=== PATIENT | male | born 1950 | race Caucasian/White ===

== ENCOUNTER → 2016-10-22 | Outpatient (CLI) | payer OTHER ==
[~2016-10-22] MED LIST: LEVE500T13 PO; LISI-791 PO
--- NOTE | 2016-10-22 10:11 | DIAGNOSTIC IMAGING REPORT ---
KUB CLINICAL HISTORY: N20.0 [id number] COMPARISON STUDY: 10/16/2015 FINDINGS: The renal shadows are partially obscured by overlying bowel gas and fecal material. There is no pathologic bowel dilatation. 2 mm opacities projected over the right renal shadow represent either calculi or overlying enteric contents. There are multiple pelvic basin calcifications, similar in orientation the prior study and likely representing phleboliths. IMPRESSION: 1. Tiny right renal calculi versus overlying enteric contents. 2. No evidence of pathologic bowel dilatation Electronically signed by: Eleazar Doherty M.D. 10/22/2016 10:10 AM Dictated Date/Time: 10/22/2016 10:08 AM
[2016-10-22 11:11] LABS: BASO % 0.5 %; BASO ABS # 0.03 K/uL (0-0.2); COMPLETE YES; EOS % 2.2 %; HEMATOCRIT 46.5 % (42-52); IG% 0.3 %; LYMPH % 27.1 %; LYMPH ABS # 1.76 K/uL (1.2-3.4); MEAN CELL VOLUME 89.1 fL (80-100); MEAN CORPUSCULAR HEMOGLOBIN 30.1 pg (25-34); MEAN CORPUSCULAR HGB CONC 33.8 g/dl (32-36); MONO % 11.4 %; NEUT % 58.5 %; PLATELET COUNT 286 K/uL (130-400); RED BLOOD COUNT 5.22 M/uL (4.7-6.1)
[2016-10-22 11:37] LABS: BLOOD UREA NITROGEN 23 mg/dl (7-18); BUN/CREATININE RATIO 20.5 (10-20); CALCIUM 8.7 mg/dl (8.5-10.1); CARBON DIOXIDE 26 mmol/L (21-32); CHLORIDE 111 mmol/L (98-107); CHOLESTEROL 173 mg/dl (0-200); GLUCOSE 89 mg/dl (70-99); POTASSIUM 4.6 mmol/L (3.5-5.1); SODIUM 145 mmol/L (136-145); TRIGLYCERIDES 66 mg/dl (0-150); VERY LOW DENSITY LIPOPROT CALC 13 mg/dl
[2016-10-22 11:49] LABS: ALB/GLOB RATIO 1.1 (0.9-2); ALKALINE PHOSPHATASE 67 U/L (45-117); ALT/SGPT 30 U/L (12-78); AST/SGOT 17 U/L (15-37); HDL CHOLESTEROL 58 mg/dl; LDL CHOLESTEROL CALCULATED 102 mg/dl; THYROID STIMULATING HORMONE 0.863 uIu/ml (0.300-4.500)
== END | disposition home or self-care (01) ==
LOC: C.RAD1850 09:33
PROVIDERS: ATTEND Urology
DX: Z00.00 Encounter for general adult medical examination without abnormal findings (principal); I10 Essential (primary) hypertension; M25.569 Pain in unspecified knee; R73.9 Hyperglycemia, unspecified; N20.0 Calculus of kidney

== ENCOUNTER → 2016-12-08 | Outpatient (CLI) | payer OTHER | END | disposition home or self-care (01) | LOC: C.LABBC 09:41 | PROVIDERS: ATTEND Internal Medicine | DX: R51 Headache (principal) ==

== ENCOUNTER → 2017-01-11 | Outpatient (CLI) | payer OTHER ==
[2017-01-11 10:14] LABS: BLOOD UREA NITROGEN 16 mg/dl (7-18); BUN/CREATININE RATIO 15.5 (10-20)
== END | disposition home or self-care (01) ==
LOC: C.LAB1850 08:39
PROVIDERS: ATTEND Internal Medicine Pulmonary Disease
DX: I10 Essential (primary) hypertension (principal); R51 Headache; R41.3 Other amnesia

== ENCOUNTER 2017-01-13 17:29 | Emergency (ER) | payer OTHER ==
[~2017-01-13] VITALS: Ht 264.2 cm; Wt 86.5 kg
[~2017-01-13 17:29] MED LIST changes: -LEVE500T13 PO
[2017-01-13 17:32] VITALS: TEMP 36.5
--- NOTE | 2017-01-13 17:46 | EMERGENCY ROOM VISIT NOTE ---
History Report prepared by Antonieta: Billy Rodriguez Under the Supervision of: Dr. Oziel Dallas D.O. First contact with patient: 17:42 Chief Complaint: NEURO SYMPTOMS Stated Complaint: NUMBNESS L ARM/HAND History of Present Illness The patient is a 66 year old male who presents to the Emergency Room with complaints of headache and numbness over the left upper extremity. The patient has been noticing symptoms for the last few weeks. He states he gets intermittent right-sided headaches which begin behind his right eye and extend to his neck. The patient was seen by his primary care physician and sent to a neurologist. He is scheduled for an MRI tomorrow. He was driving home today from [place] when he noticed left upper extremity numbness and weakness. He states that he noticed numbness going down the medial aspect of his left arm into his fourth and fifth digits. The patient denies having any headache at this time. He also denies having any numbness or weakness. The patient states he has mild neck pain but he states this is not the major issue and he denies having any traumas her injuries to his neck in the past. The patient states he has not had any lower extremity weakness. He denies having any rashes or fevers. He denies having any nausea or vomiting at this time. He's not had any recent illnesses. Source of History: patient Onset: Few Weeks Position: head, arm (left) Quality: numbness ((LUE)) Associated Symptoms: + numbness, + weakness Review of Systems See HPI for pertinent positives & negatives. A total of 10 systems reviewed and were otherwise negative. Past Medical & Surgical Medical Problems: (1) Hypertension (2) Kidney stones Surgical Problems: (1) Hx of tonsillectomy Family History No pertinent secondary to patient age. Social History Smoking Status: Never Smoker Smokeless Tobacco Use: No Alcohol Use: none Drug Use: none Occupation Status: retired Current/Historical Medications Scheduled Lisinopril (Zestril), 10 MG PO QAM Allergies Coded Allergies: No Known Allergies (Unverified , 01/13/17) Physical Exam Vital Signs Date Time Temp Pulse Resp B/P Pulse Ox O2 Delivery O2 Flow Rate FiO2 01/14/17 00:58 67 20 143/89 97 01/13/17 23:38 69 18 143/92 96 Room Air 01/13/17 21:59 60 18 156/93 95 Room Air 01/13/17 17:54 98 Room Air 01/13/17 17:32 36.5 65 18 168/102 99 Room Air Physical Exam GENERAL: Patient is awake alert in no acute distress patient is resting comfortably and showing no signs of anxiety EYES: The conjunctivae are clear. The pupils are round and reactive. EARS, NOSE, MOUTH AND THROAT: The nose is without any evidence of any deformity. Mucous membranes are moist tongue is midline NECK: The neck is nontender and supple. RESPIRATORY: Normal respiratory effort is noted there is no evidence of wheezing rhonchi or rales CARDIOVASCULAR: Regular rate and rhythm noted there no murmurs rubs or gallops normal S1 normal S2 GASTROINTESTINAL: The abdomen is soft. Bowel sounds are present in all quadrants. Abdomen is nontender MUSCULOSKELETAL/EXTREMITIES: There is no evidence of gross deformity full range of motion is noted in the hips and shoulders SKIN: There is no obvious evidence of any rash. There are no petechiae, pallor or cyanosis noted. NEUROLOGIC: Patient is awake alert and oriented x3 strength is symmetric patellar reflexes are 2+ bilaterally Medical Decision & Procedures ER Provider Diagnostic Interpretation: Radiology results as stated below per my review and radiologist interpretation: CHEST ONE VIEW PORTABLE HISTORY: Left arm numbness. Stroke COMPARISON: None. FINDINGS: The lungs are clear. Cardiac silhouette is normal in size. No pleural effusions. No pneumothorax. IMPRESSION: No acute process. Electronically signed by: Sandeep Colin M.D. 01/13/2017 6:08 PM Dictated Date/Time: 01/13/2017 6:07 PM+ CERVICAL SPINE MRI HISTORY: Left upper extremity numbness and weakness. TECHNIQUE: Multiplanar multisequence MRI of the cervical spine was performed without the use of contrast. COMPARISON STUDY: None. FINDINGS: No fracture or subluxation. There is a 1 cm hemangioma within the T2 vertebral body. Prevertebral soft tissues and the C1-C2 interval are intact. The cervical spinal cord demonstrates a normal course, caliber, and signal intensity. Mild disc space narrowing at C5-C6 and C6-C7. C2-C3: No significant central canal or neural foraminal narrowing. C3-C4: No central canal or left-sided neural foraminal narrowing. Moderate right-sided neural foraminal narrowing due to the uncovertebral and facet hypertrophy. C4-C5: No central canal narrowing. Mild bilateral neural foraminal narrowing. C5-C6: Broad-based posterior disc bulge which abuts but does not deform the anterior cord. There is moderate right and severe left neural foraminal narrowing. C6-C7: Small broad-based posterior disc bulge which abuts but does not deform the anterior cord. There is severe right neural foraminal narrowing. C7-T1: No significant central canal or neural foraminal narrowing. IMPRESSION: 1. Broad-based posterior disc bulges which abut but do not deform the anterior cord at C5-C6 and C6-C7. 2. Multilevel bilateral neural foraminal narrowing as described above. Electronically signed by: Sandeep Colin M.D. 01/13/2017 9:38 PM Dictated Date/Time: 01/13/2017 9:30 PM Brain MRI WITH AND WITHOUT CONTRAST HISTORY: Headache. Left upper extremity numbness. TECHNIQUE: Multiplanar multisequence MRI of the brain was performed both before and after the intravenous administration of contrast. COMPARISON STUDY: None. FINDINGS: No acute infarct or mass. There are retention cysts within the maxillary sinuses. The mastoid air cells are clear. The major vascular flow-voids at the skull base are maintained. There is a moderate to large right subdural hematoma demonstrating a maximal thickness of 2.2 cm. This results in 6 mm of left midline shift, mass effect along the right frontal/parietal lobes, and partial effacement of the right lateral ventricle. Right-sided dural enhancement is likely reactive. Also trace subarachnoid hemorrhage within the right frontal and parietal lobes adjacent to the subdural hematoma. IMPRESSION: A moderate to large right subdural hematoma with a maximal thickness of 2.2 cm. This results in 6 mm of left midline shift. There is also a trace amount of subarachnoid hemorrhage within the right frontal and parietal lobes adjacent to the subdural hematoma . These findings were discussed with Dr. Dallas at 10:13 PM on 01/13/2017. Electronically signed by: Sandeep Colin M.D. 01/13/2017 10:13 PM Dictated Date/Time: 01/13/2017 10:02 PM Laboratory Results 01/13/17 17:55 Red Blood Count 5.42, Mean Corpuscular Volume 91.0, Mean Corpuscular Hemoglobin 30.3, Mean Corpuscular Hemoglobin Concent 33.3, Mean Platelet Volume 9.7, Neutrophils (%) (Auto) 58.6, Lymphocytes (%) (Auto) 29.6, Monocytes (%) (Auto) 9.1, Eosinophils (%) (Auto) 2.1, Basophils (%) (Auto) 0.5, Neutrophils # (Auto) 4.68, Lymphocytes # (Auto) 2.37, Monocytes # (Auto) 0.73, Eosinophils # (Auto) 0.17, Basophils # (Auto) 0.04 01/13/17 17:55 Test 01/13/17 17:55 01/13/17 19:40 White Blood Count 8.00 K/uL (4.8-10.8) Red Blood Count 5.42 M/uL (4.7-6.1) Hemoglobin 16.4 g/dL (14.0-18.0) Hematocrit 49.3 % (42-52) Mean Corpuscular Volume 91.0 fL (80-100) Mean Corpuscular Hemoglobin 30.3 pg (25-34) Mean Corpuscular Hemoglobin Concent 33.3 g/dl (32-36) Platelet Count 350 K/uL (130-400) Mean Platelet Volume 9.7 fL (7.4-10.4) Neutrophils (%) (Auto) 58.6 % Lymphocytes (%) (Auto) 29.6 % Monocytes (%) (Auto) 9.1 % Eosinophils (%) (Auto) 2.1 % Basophils (%) (Auto) 0.5 % Neutrophils # (Auto) 4.68 K/uL (1.4-6.5) Lymphocytes # (Auto) 2.37 K/uL (1.2-3.4) Monocytes # (Auto) 0.73 K/uL (0.11-0.59) Eosinophils # (Auto) 0.17 K/uL (0-0.5) Basophils # (Auto) 0.04 K/uL (0-0.2) RDW Standard Deviation 43.5 fL (36.4-46.3) RDW Coefficient of Variation 13.1 % (11.5-14.5) Immature Granulocyte % (Auto) 0.1 % Immature Granulocyte # (Auto) 0.01 K/uL (0.00-0.02) Erythrocyte Sedimentation Rate 27 mm/hr (0-14) Prothrombin Time 10.7 SECONDS (9.0-12.0) Prothromb Time International Ratio 1.0 (0.9-1.1) Activated Partial Thromboplast Time 28.9 SECONDS (21.0-31.0) Partial Thromboplastin Ratio 1.1 Anion Gap 6.0 mmol/L (3-11) Est Creatinine Clear Calc Drug Dose 81.9 ml/min Estimated GFR () 81.2 Estimated GFR (Non- 70.1 BUN/Creatinine Ratio 16.4 (10-20) Calcium Level 8.9 mg/dl (8.5-10.1) Total Bilirubin 0.3 mg/dl (0.2-1) Direct Bilirubin < 0.1 mg/dl (0-0.2) Aspartate Amino Transf (AST/SGOT) 13 U/L (15-37) Alanine Aminotransferase (ALT/SGPT) 22 U/L (12-78) Alkaline Phosphatase 85 U/L (45-117) Total Creatine Kinase 76 U/L (39-308) Creatine Kinase MB 0.6 ng/ml (0.5-3.6) Creatine Kinase MB Ratio 0.8 (0-3.0) Troponin I < 0.015 ng/ml (0-0.045) Total Protein 7.9 gm/dl (6.4-8.2) Albumin 3.9 gm/dl (3.4-5.0) Urine Color YELLOW Urine Appearance CLEAR (CLEAR) Urine pH 6.5 (4.5-7.5) Urine Specific [place] 1.018 (1.000-1.030) Urine Protein NEG (NEG) Urine Glucose (UA) NEG (NEG) Urine Ketones TRACE (NEG) Urine Occult Blood TRACE (NEG) Urine Nitrite NEG (NEG) Urine Bilirubin NEG (NEG) Urine Urobilinogen NEG (NEG) Urine Leukocyte Esterase NEG (NEG) Urine WBC (Auto) 0 /hpf (0-5) Urine RBC (Auto) 0-4 /hpf (0-4) Urine Hyaline Casts (Auto) 0 /lpf (0-5) Urine Epithelial Cells (Auto) 0-5 /lpf (0-5) Urine Bacteria (Auto) NEG (NEG) Laboratory results per my review. Medications Administered Medications (Trade) Dose Ordered Sig/Carine Route Start Time Stop Time Status Last Admin Dose Admin Sodium Chloride (Nss 1000ml) 1,000 ml @ 50 mls/hr Q20H IV 01/13/17 17:48 01/14/17 01:20 DC 01/13/17 18:10 50 MLS/HR ECG Indication: weakness Rate (beats per minute): 57 Rhythm: sinus bradycardia Findings: no acute ischemic change, no ectopy Comparison ECG Date: 01/12/2015 Change: no significant change ED Course 1748: Ordered Sodium Chloride 1000 mL @ 50 mL/hr IV. 1751: The patient was evaluated in room C12. A complete history and physical examination were performed. 2200: Ordered Gadobutrol 8.5 mmol IV. 220: I checked on the patient at this time. He notes that he has no clue how he could have a bleed in his brain. He denies any trauma. 2211: I discussed the case with Dr. Colin - Radiology at this time, he suggest transfer to neurosurgery. 225: I discussed the case with Dr. Gonzalez - Neurosurgery [facility], he will accept the patient for transfer to [facility]. Medical Decision Prior records/ancillary studies reviewed and summarized above. Nursing notes reviewed. Differential diagnosis: Etiologies such as metabolic, infection, hypo/hyperglycemia, electrolyte abnormalities, cardiac sources, intracerebral event, toxicologic, neurologic, as well as others were entertained. The patient is a 66-year-old male who presented to the emergency department for an evaluation of headache and left upper extremity numbness. The patient states he started having the symptoms around the beginning of December. He does not have a headache at this time. He has no focal neurologic deficits. He was complaining mostly of numbness to the medial aspect of his left upper extremity. He did complain of some neck pain in the past but he has no neck pain at this time. The patient saw his primary care physician and was referred to a neurologist. He is scheduled for an MRI of the brain and presented to the emergency department today because of the numbness in the left upper extremity. He requested that I get the MRI this evening that was scheduled for tomorrow. I discussed patient's laboratory and radiographic studies with him. He was treated with IV fluids in the emergency department. He was found to have an acute on chronic subdural hematoma on the MRI the brain. MRI the cervical spine showed some disc disease but I do feel the patient's presentation today is due to the subdural hematoma. I discussed this case with the on-call neurosurgical services at [facility]. They've agreed to accept the patient in transfer for further management and disposition. I discussed this plan with the patient was agreeable. Consults Time Called: 2204 Consulting Physician: Dr. Colin - Radiology Returned Call: [phone] I discussed the case with Dr. Colin - Radiology at this time, he suggest transfer to neurosurgery. Additional Consults: Time Called: 2249 Consulted Physician: Dr. Gonzalez - Neurosurgery [facility] Returned Call: [phone] Additional Comments: I discussed the case with Dr. Gonzalez - John [facility], he will accept the patient for transfer to [facility]. Impression Primary Impression: Subdural hematoma, acute Additional Impressions: Subarachnoid hemorrhage Headache Scribe Attestation The scribe's documentation has been prepared under my direction and personally reviewed by me in its entirety. I confirm that the note above accurately reflects all work, treatment, procedures, and medical decision making performed by me. Departure Information Dispostion Transfer Acute Care Facility ([facility] ) Referrals Vamsi Ly M.D. (PCP) Patient Instructions [facility] Problem Qualifiers Additional Impressions: Headache Headache type: unspecified Headache chronicity pattern: acute headache Intractability: not intractable Qualified Codes: R51 - Headache
[2017-01-13] MEDS ORDERED: SODIUM CHLORIDE 0.9% 1000ML 1,000 ML IV SCH (17:48)
[2017-01-13 17:52] VITALS: Ht 264.2 cm; Wt 86.5 kg
[2017-01-13 17:54] VITALS: O2SAT 98
[2017-01-13 18:06] LABS: BASO % 0.5 %; BASO ABS # 0.04 K/uL (0-0.2); COMPLETE YES; EOS % 2.1 %; HEMATOCRIT 49.3 % (42-52); IG% 0.1 %; LYMPH % 29.6 %; LYMPH ABS # 2.37 K/uL (1.2-3.4); MEAN CORPUSCULAR HEMOGLOBIN 30.3 pg (25-34); MEAN CORPUSCULAR HGB CONC 33.3 g/dl (32-36); MEAN PLATELET VOLUME 9.7 fL (7.4-10.4); MONO % 9.1 %; NEUT % 58.6 %; PLATELET COUNT 350 K/uL (130-400); RED BLOOD COUNT 5.42 M/uL (4.7-6.1)
--- NOTE | 2017-01-13 18:10 | DIAGNOSTIC IMAGING REPORT ---
CHEST ONE VIEW PORTABLE HISTORY: Left arm numbness. Stroke COMPARISON: None. FINDINGS: The lungs are clear. Cardiac silhouette is normal in size. No pleural effusions. No pneumothorax. IMPRESSION: No acute process. Electronically signed by: Sandeep Colin M.D. 01/13/2017 6:08 PM Dictated Date/Time: 01/13/2017 6:07 PM
[2017-01-13 18:19] LABS: PARTIAL THROMBOPLASTIN RATIO 1.1; PROTHROMBIN TIME (PATIENT) 10.7 SECONDS (9.0-12.0)
[2017-01-13 18:29] LABS: ALT/SGPT 22 U/L (12-78); AST/SGOT 13 U/L (15-37); BLOOD UREA NITROGEN 18 mg/dl (7-18); BUN/CREATININE RATIO 16.4 (10-20); CALCIUM 8.9 mg/dl (8.5-10.1); CARBON DIOXIDE 28 mmol/L (21-32); CHLORIDE 106 mmol/L (98-107); GLUCOSE 84 mg/dl (70-99); POTASSIUM 4.2 mmol/L (3.5-5.1); SODIUM 140 mmol/L (136-145)
[2017-01-13 18:34] LABS: ALKALINE PHOSPHATASE 85 U/L (45-117); CKMB/CK RATIO 0.8 (0-3.0)
[2017-01-13 19:59] LABS: MANUAL MICROSCOPIC REQUIRED? NO; REVIEW REQ? NO; URINE APPEARANCE CLEAR (CLEAR); URINE BILIRUBIN NEG (NEG); URINE COLOR YELLOW; URINE EPITHELIAL CELL AUTO 0-5 /lpf (0-5); URINE NITRITE NEG (NEG); URINE PH 6.5 (4.5-7.5); URINE SPECIFIC GRAVITY 1.018 (1.000-1.030); UROBILINOGEN NEG (NEG); ZZUR CULT IF INDIC CLEAN CATCH NO
--- NOTE | 2017-01-13 21:42 | DIAGNOSTIC IMAGING REPORT ---
CERVICAL SPINE MRI HISTORY: Left upper extremity numbness and weakness. TECHNIQUE: Multiplanar multisequence MRI of the cervical spine was performed without the use of contrast. COMPARISON STUDY: None. FINDINGS: No fracture or subluxation. There is a 1 cm hemangioma within the T2 vertebral body. Prevertebral soft tissues and the C1-C2 interval are intact. The cervical spinal cord demonstrates a normal course, caliber, and signal intensity. Mild disc space narrowing at C5-C6 and C6-C7. C2-C3: No significant central canal or neural foraminal narrowing. C3-C4: No central canal or left-sided neural foraminal narrowing. Moderate right-sided neural foraminal narrowing due to the uncovertebral and facet hypertrophy. C4-C5: No central canal narrowing. Mild bilateral neural foraminal narrowing. C5-C6: Broad-based posterior disc bulge which abuts but does not deform the anterior cord. There is moderate right and severe left neural foraminal narrowing. C6-C7: Small broad-based posterior disc bulge which abuts but does not deform the anterior cord. There is severe right neural foraminal narrowing. C7-T1: No significant central canal or neural foraminal narrowing. IMPRESSION: 1. Broad-based posterior disc bulges which abut but do not deform the anterior cord at C5-C6 and C6-C7. 2. Multilevel bilateral neural foraminal narrowing as described above. Electronically signed by: Sandeep Colin M.D. 01/13/2017 9:38 PM Dictated Date/Time: 01/13/2017 9:30 PM
[2017-01-13] MEDS ORDERED: GADAVIST IV PRN (22:00)
--- NOTE | 2017-01-13 22:14 | DIAGNOSTIC IMAGING REPORT ---
Brain MRI WITH AND WITHOUT CONTRAST HISTORY: Headache. Left upper extremity numbness. TECHNIQUE: Multiplanar multisequence MRI of the brain was performed both before and after the intravenous administration of contrast. COMPARISON STUDY: None. FINDINGS: No acute infarct or mass. There are retention cysts within the maxillary sinuses. The mastoid air cells are clear. The major vascular flow-voids at the skull base are maintained. There is a moderate to large right subdural hematoma demonstrating a maximal thickness of 2.2 cm. This results in 6 mm of left midline shift, mass effect along the right frontal/parietal lobes, and partial effacement of the right lateral ventricle. Right-sided dural enhancement is likely reactive. Also trace subarachnoid hemorrhage within the right frontal and parietal lobes adjacent to the subdural hematoma. IMPRESSION: A moderate to large right subdural hematoma with a maximal thickness of 2.2 cm. This results in 6 mm of left midline shift. There is also a trace amount of subarachnoid hemorrhage within the right frontal and parietal lobes adjacent to the subdural hematoma . These findings were discussed with Dr. Dallas at 10:13 PM on 01/13/2017. Electronically signed by: Sandeep Colin M.D. 01/13/2017 10:13 PM Dictated Date/Time: 01/13/2017 10:02 PM
[2017-01-14 00:58] VITALS: BP 143/89; PULSE 67; O2SAT 97
== END 2017-01-14 00:58 | disposition short-term general hospital (02) ==
LOC: C.EDB 17:31 → C.EDC 01-14 00:58
DX: I62.01 Nontraumatic acute subdural hemorrhage (principal); I60.9 Nontraumatic subarachnoid hemorrhage, unspecified; I10 Essential (primary) hypertension; Z87.442 Personal history of urinary calculi; Z79.899 Other long term (current) drug therapy

== ENCOUNTER 2017-02-15 11:48 | Emergency (ER) | payer OTHER ==
[~2017-02-15] VITALS: Ht 180.3 cm; Wt 81.5 kg
[2017-02-15 11:58] VITALS: TEMP 37.1; Ht 180.3 cm; Wt 81.5 kg
[2017-02-15] MEDS ORDERED: ACETAMINOPHEN 500 MG TAB PO STA (12:18)
--- NOTE | 2017-02-15 12:33 | EMERGENCY ROOM VISIT NOTE ---
History Report prepared by Helenibjossue: Earline Kenney Under the Supervision of: Dr. Adolfo Jones M.D. First contact with patient: 12:11 Chief Complaint: HEADACHE Stated Complaint: HEADACHE History of Present Illness The patient is a 66 year old male who presents to the Emergency Room with complaints of an intermittent headache for the past 1 month. He reports he was seen here in the ED approximately 1 month ago for similar symptoms and underwent an MRI of the head that showed two subdural hematomas. He was transferred to [facility] where he saw Neurology, underwent a CT scan, was placed on Keppra after "3 to 4 incidences of left arm numbness", and was put on steroids for approximately 3 weeks. He notes he has stopped taking the steroids after possible allergic symptoms with taking them. Yesterday, the patient "stumbled" and fell, landing on his hands and knees. He did not hit his head or lose consciousness. He denies experiencing any headache yesterday during the day , but states he started experiencing a "dull headache" in the middle of the night. He rates the pain as a 5/10 and took Tylenol last night and again this morning, stating it provided moderate relief. The patient denies any numbness in his left arm or vomiting in the past few days. He does not take Coumadin or any other blood thinners. He and his report Neurology at [facility] told him the hematomas were most likely from a fall or head injury, but the patient states he doesn't remember hitting his head in the past few months. Source of History: patient Onset: 1 month [employer] Position: head Symptom Intensity: 5/10 Timing: intermittent Modifying Factors (Relieving): tylenol Associated Symptoms: No LOC, No vomiting, No numbness (left arm numbness) Review of Systems See HPI for pertinent positives & negatives. A total of 10 systems reviewed and were otherwise negative. Past Medical & Surgical Medical Problems: (1) Hypertension (2) Kidney stones Surgical Problems: (1) Hx of tonsillectomy Social History Smoking Status: Never Smoker Alcohol Use: none Drug Use: none Marital Status: Housing Status: lives with family Occupation Status: retired Current/Historical Medications Scheduled Levetiracetam (Keppra), 500 MG PO DAILY Lisinopril (Zestril), 10 MG PO QAM Allergies Coded Allergies: No Known Allergies (Unverified , 02/15/17) Physical Exam Vital Signs Date Time Temp Pulse Resp B/P (MAP) Pulse Ox O2 Delivery O2 Flow Rate FiO2 02/15/17 13:16 88 18 135/91 93 Room Air 02/15/17 11:58 37.1 101 18 152/105 95 Room Air Physical Exam GENERAL: Patient is in no acute distress. HEENT: No acute trauma, normocephalic atraumatic, mucous membranes moist, no nasal congestion, no scleral icterus. Pupils equal and reactive to light. NECK: No stridor, no adenopathy, no meningismus, trachea is midline. LUNGS: Clear to auscultation bilaterally, no wheeze, no rhonchi, breath sounds equal. HEART: Without murmurs gallops or rubs, regular rate and rhythm. ABDOMEN: Soft, nontender, bowel sounds positive, no hernias, no peritonitis. EXTREMITIES: No cyanosis or edema, full range of motion of all the joints without pain or difficulty, abrasion to left anterior knee without signs of underlying injury. NEUROLOGIC: Oriented x 3, no acute motor or sensory deficits, no focal weakness. No cerebellar deficits. SKIN: No rash, no jaundice, no diaphoresis Medical Decision & Procedures ER Provider Diagnostic Interpretation: CT HEAD, WITHOUT, PERFORMED AT [facility], JANUARY 29, 2017 IMPRESSION: Slight interval decrease in size of the right frontoparietal subdural hematoma, which now measures approximately 15 mm (previously 21 mm), with reduced mass effect. No new hemorrhage is identified. Authenticated by Dr. Krystian Salazar MD. HEAD CT NONCONTRAST CT DOSE: 729.78 mGycm HISTORY: Headache history of right subdural in december 2016--headache today TECHNIQUE: Multiaxial CT images of the head were performed without the use of intravenous contrast. Comparison: MRI dated 01/13/2017 Findings: The paranasal sinuses and mastoid air cells are clear. Chronic right subdural hematoma. Thickness has improved considerably from the prior MRI study with maximum thickness currently of approximately 1.1 cm. This is improved from 2.2 cm. Midline shift is diminished. Mass effect upon the right cerebral hemispheres improved. There is no evidence for acute intracranial hemorrhage. Basal cisterns are within normal limits. Slight prominence of the subarachnoid spaces over the left frontal region are noted but this is unchanged from the prior exam. Impression: 1. No acute process. 2. Improving right chronic subdural hematoma with diminished thickness and diminished mass effect. Electronically signed by: Benny Miramontes M.D. 02/15/2017 1:00 PM Medications Administered Medications (Trade) Dose Ordered Sig/Carine Route Start Time Stop Time Status Last Admin Dose Admin Acetaminophen (Tylenol Tab) 1,000 mg NOW STAT PO 02/15/17 12:18 02/15/17 12:20 DC 02/15/17 12:37 1,000 MG ED Course 1214: The patient was evaluated in room B3. A complete history and physical exam was performed. 1218: Acetaminophen 1000 mg PO. 1325: I reviewed the patient's CT Head from [facility], performed on January 29, 2017. The hematoma seen on CT today in the ED is smaller than what was found by brendon on January 29. See diagnostic interpretation for the full CT impression from [facility], as well as today's CT HEAD. 1330: I reevaluated the patient. He is feeling well. I discussed his results and discharge instructions and he and his verbalized complete understanding and agreement. Medical Decision Medication Reconciliation: I attest that I have personally reviewed the patient' s current medication list. Blood Pressure Screening: Patient was found to have a slightly elevated blood pressure and will be referred to his primary care doctor's office for further follow up. The differential diagnoses considered include recurring subdural hematoma, concussion, cervical strain , tension headache, scalp hematoma and skull fracture. The patient presents with a headache, he has concerns for worsening of a recent diagnosed subdural hematoma. On exam, there were no neurologic deficits, he was not febrile, he was not toxic. Brain CT shows a decrease in the size of the subdural hematoma. He no longer has any midline shift. He was reassured by his findings. He was given Tylenol for pain. He was discharged home. His headache is likely musculoskeletal from his recent fall. Impression Primary Impression: Headache Additional Impression: Subdural hematoma Scribe Attestation The scribe's documentation has been prepared under my direction and personally reviewed by me in its entirety. I confirm that the note above accurately reflects all work, treatment, procedures, and medical decision making performed by me. Departure Information Dispostion Home / Self-Care Referrals No Doctor, Assigned (PCP) Patient Instructions My [facility] Additional Instructions tylenol for pain return for worsening symptoms the subdural is smaller today than January 29---11 mm today, no shift of the midline Problem Qualifiers
--- NOTE | 2017-02-15 13:01 | DIAGNOSTIC IMAGING REPORT ---
HEAD CT NONCONTRAST CT DOSE: 729.78 mGycm HISTORY: Headache history of right subdural in december 2016--headache today TECHNIQUE: Multiaxial CT images of the head were performed without the use of intravenous contrast. Comparison: MRI dated 01/13/2017 Findings: The paranasal sinuses and mastoid air cells are clear. Chronic right subdural hematoma. Thickness has improved considerably from the prior MRI study with maximum thickness currently of approximately 1.1 cm. This is improved from 2.2 cm. Midline shift is diminished. Mass effect upon the right cerebral hemispheres improved. There is no evidence for acute intracranial hemorrhage. Basal cisterns are within normal limits. Slight prominence of the subarachnoid spaces over the left frontal region are noted but this is unchanged from the prior exam. Impression: 1. No acute process. 2. Improving right chronic subdural hematoma with diminished thickness and diminished mass effect. Electronically signed by: Benny Miramontes M.D. 02/15/2017 1:00 PM Dictated Date/Time: 02/15/2017 12:56 PM
[2017-02-15 13:16] VITALS: BP 135/91; PULSE 88; O2SAT 93
[2017-02-15] MEDS ORDERED: LEVE500T13 PO (13:36)
== END 2017-02-15 13:47 | disposition home or self-care (01) ==
LOC: C.EDB 11:49
DX: R51 Headache (principal); I62.03 Nontraumatic chronic subdural hemorrhage; I10 Essential (primary) hypertension; Z87.442 Personal history of urinary calculi; Z79.899 Other long term (current) drug therapy

== ENCOUNTER → 2017-05-01 | Outpatient (CLI) | payer OTHER ==
[~2017-05-01] MED LIST changes: +LEVE500T13 PO
--- NOTE | 2017-05-01 08:53 | DIAGNOSTIC IMAGING REPORT ---
(RENAL)RETROPERITON COMP HISTORY: 67 years-old Male N28.1,RENAL CYST COMPARISON: Ultrasound of the abdomen 02/17/2014, CT abdomen and pelvis 09/03/2014. TECHNIQUE: Multiple real-time sonographic images of the bilateral kidneys and urinary bladder were obtained assessing grayscale appearance and color flow. FINDINGS: Right kidney measures 10.6 x 4.9 x 5.1 cm and is unremarkable without renal calculi or hydronephrosis. Cortical medullary differentiation is within normal limits. Urinary bladder is unremarkable with bilateral ureteral jets documented. The prostate appears mildly enlarged indenting the floor of the urinary bladder. There is mild wall thickening of the posterior bladder wall Circumscribed hypoechoic lesion of the lateral aspect inferior pole left kidney with mild lobulated circumscribed margins and thin internal septation is again noted, 3.8 x 4.1 cm, previously measuring 4.1 x [address] study dated 09/03/2014. This also appears stable from comparison ultrasound 02/17/2014. No mural nodularity or internal flow is seen within this lesion. Additionally, there are 2 smaller cysts noted involving the inferior pole left kidney anteriorly, measuring up to 1.4 cm which also appear unchanged. Previously noted 7 mm calcification of the inferior pole left kidney is not definitely seen. IMPRESSION: 1. Circumscribed mildly complex cyst of the lateral inferior pole left kidney is again seen measuring up to 4.1 cm which appears stable from comparison ultrasound 02/17/[address] 09/03/2014. 2. Additional smaller cyst of the inferior pole left kidney are also unchanged. 3. Previously noted 7 mm calcification of the inferior pole left kidney seen on CT study is not clearly identified. 4. No hydronephrosis. 5. Prostamegaly with findings suggesting chronic bladder outlet obstruction. The above report was generated using voice recognition software. It may contain grammatical, syntax or spelling errors. Electronically signed by: Odilon Martinez M.D. 05/01/2017 8:51 AM Dictated Date/Time: 05/01/2017 8:45 AM
== END | disposition home or self-care (01) ==
LOC: C.ULTR 08:10
PROVIDERS: ATTEND Physician Assistant Medical
DX: N28.1 Cyst of kidney, acquired (principal)

== ENCOUNTER → 2017-10-21 | Outpatient (CLI) | payer OTHER, BC ==
[~2017-10-21] MED LIST changes: -LEVE500T13 PO; -LISI-791 PO; +LSN20 PO; +LZL125 PO
== END | disposition home or self-care (01) ==
LOC: C.LAB1850 09:25
PROVIDERS: ATTEND Internal Medicine Pulmonary Disease
DX: Z00.00 Encounter for general adult medical examination without abnormal findings (principal); I10 Essential (primary) hypertension; N40.1 Benign prostatic hyperplasia with lower urinary tract symptoms; Z86.79 Personal history of other diseases of the circulatory system

== ENCOUNTER → 2017-12-19 | Outpatient (CLI) | payer OTHER, BC ==
--- NOTE | 2017-12-19 09:03 | DIAGNOSTIC IMAGING REPORT ---
KUB HISTORY: Nephrolithiasis. COMPARISON: [facility] 10/22/2016. FINDINGS: The bowel gas pattern is unremarkable. There are no dilated loops of small bowel to suggest an obstruction. The renal shadows are partially obscured by overlying bowel gas. No definite renal calculi identified. Cholecystectomy. No ureteral calculi. Calcifications in the deep pelvis likely represent phleboliths. These remain unchanged. No pneumoperitoneum or pneumatosis. IMPRESSION: No renal or ureteral stones. Electronically signed by: Sandeep Colin M.D. 12/19/2017 9:02 AM Dictated Date/Time: 12/19/2017 9:01 AM
== END | disposition home or self-care (01) ==
LOC: C.RAD1850 08:46
PROVIDERS: ATTEND Urology
DX: Z00.00 Encounter for general adult medical examination without abnormal findings (principal); N20.0 Calculus of kidney